=== PATIENT | female | born 1950 | race Caucasian/White ===

== ENCOUNTER 2020-09-21 19:04 | Emergency (ER) | payer MEDICARE, OTHER ==
[~2020-09-21 19:04] MED LIST: AUGMENTIN 875-1 EACH PO; COLACE100 MG PO; PREDNISONE 20 M20 MG PO; SUDAFED 60 MG T60 MG PO; TESSALON PERLE100 MG PO
[2020-09-21] MEDS ORDERED: BACTROBAN OINT22 GM EXT (19:27)
[2020-09-21] MEDS ORDERED: BACTRIM DS TAB1 EACH PO (19:27)
== END 2020-09-21 19:50 | disposition home or self-care (01) ==
LOC: ER1 19:04
DX: J34.0 Abscess, furuncle and carbuncle of nose (principal); E11.9 Type 2 diabetes mellitus without complications; I10 Essential (primary) hypertension; Z90.89 Acquired absence of other organs
CPT/HCPCS: 99283

== ENCOUNTER → 2021-03-23 | Outpatient (CLI) | payer MEDICARE, OTHER, SELFPAY ==
[~2021-03-23] MED LIST changes: +BACTRIM DS TAB1 EACH PO; +BACTROBAN OINT22 GM EXT
== END ==
LOC: RAD 17:27
DX: M17.0 Bilateral primary osteoarthritis of knee (principal); R93.6 Abnormal findings on diagnostic imaging of limbs
CPT/HCPCS: 73562

== ENCOUNTER 2021-07-13 14:50 | Emergency (ER) | payer MEDICARE, OTHER ==
[2021-07-13 15:55] LABS: HEMOGLOBIN 12.4 gm/dl (12.3-15.3); RED BLOOD COUNT 4.26 M/UL (4.00-5.10); WHITE BLOOD COUNT 6.9 K/UL (4.5-11.0)
[2021-07-13 16:40] LABS: BUN/CREATININE RATIO 19 (0-10)
[2021-07-13] MEDS ORDERED: K-TAB ER20 MEQ PO (18:14)
[2021-07-13] MEDS ORDERED: LASIX20 MG PO (18:14)
== END 2021-07-13 18:25 | disposition home or self-care (01) ==
LOC: ER1 14:50
PROVIDERS: Physician Assistant
DX: R07.9 Chest pain, unspecified (principal); R06.02 Shortness of breath; R60.0 Localized edema; E11.9 Type 2 diabetes mellitus without complications; E78.5 Hyperlipidemia, unspecified; I10 Essential (primary) hypertension
CPT/HCPCS: 71045; 80053; 82550; 82553; 83874; 83880; 84484; 85025; 93005; 99285

== ENCOUNTER 2022-01-30 23:00 | Emergency (ER) | payer MEDICARE, OTHER ==
[~2022-01-30 23:00] MED LIST changes: +K-TAB ER20 MEQ PO; +LASIX20 MG PO
== END 2022-01-31 04:05 | disposition home or self-care (01) ==
LOC: ER1 23:00
DX: M25.511 Pain in right shoulder (principal); M79.641 Pain in right hand; E11.9 Type 2 diabetes mellitus without complications; Z88.1 Allergy status to other antibiotic agents; W01.0XXA Fall on same level from slipping, tripping and stumbling without subsequent striking against object, initial encounter
CPT/HCPCS: 73010; 73030; 73130; 99283